=== PATIENT | male | born 2005 | race Hispanic/Latino ===

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

== ENCOUNTER 2025-02-02 16:49 | Emergency (ER) | payer MEDICAID, SELFPAY ==
[2025-02-02] MEDS ORDERED: Boostrix 0.5 ML (Tdap) VIAL (>/=7 yrs of age) ONE (17:03)
[2025-02-02] MEDS ORDERED: Lidocaine 1% (PF) 30 ML VIAL ONE (17:08)
[2025-02-02] MEDS ORDERED: Bacitracin 1 PK ONE ×2 (17:08→19:05)
[2025-02-02] MEDS ORDERED: Naproxen 500 MG TAB ONE (17:08)
== END 2025-02-02 19:46 | disposition home or self-care (01) ==
LOC: NAV ERS 16:49
DX: S92.411B Displaced fracture of proximal phalanx of right great toe, initial encounter for open fracture (principal); S92.511A Displaced fracture of proximal phalanx of right lesser toe(s), initial encounter for closed fracture; W29.8XXA Contact with other powered hand tools and household machinery, initial encounter; Y93.H3 Activity, building and construction; Y99.0 Civilian activity done for income or pay; Z23 Encounter for immunization
CPT/HCPCS: 90471; 90715